=== PATIENT | female | born 1940 | race Caucasian/White ===

== ENCOUNTER 2017-11-27 12:55 | Emergency (ER) | payer MEDICARE, OTHER ==
[2017-11-27] MEDS: HYDROCODONE/APAP (5/325) TAB PO (14:08)
== END 2017-11-27 15:35 | disposition home or self-care (01) ==
LOC: FTE 12:55
DX: S83.91XA Sprain of unspecified site of right knee, initial encounter (principal); S93.401A Sprain of unspecified ligament of right ankle, initial encounter; I10 Essential (primary) hypertension; W01.0XXA Fall on same level from slipping, tripping and stumbling without subsequent striking against object, initial encounter; Y92.9 Unspecified place or not applicable
CPT/HCPCS: 73562; 73590; 73610-RT; 99283-25

== ENCOUNTER → 2019-02-01 | Outpatient (CLI) | payer MEDICARE, OTHER | END | disposition home or self-care (01) | LOC: EKG 13:47 | DX: R07.89 Other chest pain (principal) | CPT/HCPCS: 93005 ==